=== PATIENT | female | born 1945 | race Caucasian/White ===

== ENCOUNTER 2022-10-21 09:38 | Emergency (ER) | payer OTHER ==
[~2022-10-21] VITALS: Ht 152.4 cm; Wt 65.8 kg
[2022-10-21 09:44] VITALS: BP_SYST 149; PULSE 84; RESP 18; TEMP 97.6; O2SAT 97
[2022-10-21 10:28] LABS: BILIRUBIN,URINE NEGATIVE (NEGATIVE); BLOOD, URINE NEGATIVE (NEGATIVE); CLARITY/URINE Clear (CLEAR); COLOR,URINE Light yellow (YELLOW); GLUCOSE,URINE NEGATIVE (NEGATIVE); LEUKOCYTE ESTERASE ,URINE 1+ (NEGATIVE); NITRITE, URINE NEGATIVE (NEGATIVE); PROTEIN URINE NEGATIVE (NEGATIVE); UROBILINOGEN,URINE 0.2 (0.2-1.0)
[2022-10-21 10:46] LABS: KETONES,URINE NEGATIVE (NEGATIVE)
[2022-10-21] MEDS ORDERED: CIPR500T5 PO ×2 (10:52)
[2022-10-21 10:58] LABS: BACTERIA,URINE None Seen /HPF (None Seen); RBC,URINE 0-3 /HPF (0-3)
[2022-10-21 12:32] VITALS: BP_SYST 140; PULSE 74; RESP 17; TEMP 97; O2SAT 98
[2022-10-24] MEDS ORDERED: CIPR500T5 PO (08:31)
== END 2022-10-21 12:33 | disposition home or self-care (01) ==
LOC: SED 09:38
DX: N39.0 Urinary tract infection, site not specified (principal); N81.10 Cystocele, unspecified; I10 Essential (primary) hypertension; Z79.899 Other long term (current) drug therapy
CPT/HCPCS: 81000; 81003; 99283

== ENCOUNTER 2023-06-23 02:02 | Emergency (ER) | payer OTHER ==
[~2023-06-23] VITALS: Ht 160 cm; Wt 73.5 kg
[~2023-06-23 02:02] MED LIST: CIPR500T5 PO
[2023-06-23 02:16] VITALS: BP_SYST 167; PULSE 73; RESP 16; TEMP 97; O2SAT 99
[2023-06-23 10:35] VITALS: BP_SYST 148; PULSE 58; RESP 19; TEMP 96.7; O2SAT 97
== END 2023-06-23 10:36 ==
LOC: SED 02:02
DX: S09.90XA Unspecified injury of head, initial encounter (principal); I10 Essential (primary) hypertension; W22.09XA Striking against other stationary object, initial encounter; Y93.89 Activity, other specified; Y92.89 Other specified places as the place of occurrence of the external cause; Y99.8 Other external cause status
CPT/HCPCS: 70450-TC; 72125-TC; 82948; 99284